=== PATIENT | male | born 1970 | race Caucasian/White ===

== ENCOUNTER 2018-02-28 06:13 | Day surgery (SDC) | payer OTHER ==
[~2018-02-28 06:13] MED LIST: CEFAZOLIN 2 GM/50 ML (PMX) 50 ML IVPB; LIDOCAINE 1% (MPF) 30 ML INJ; MINERAL OIL LIGHT 10 ML VIAL; SOD CHLORIDE 0.9% 1,000 ML IV
[2018-02-28 07:15] LABS: ADD MAN DIFF? NO
[2018-02-28 07:18] LABS: BASOPHIL # 0.1 10^3/ul (0.0-0.1); BASOPHILS % 0.6 % (0.0-2.0); EOSINOPHILS # 0.2 10^3/ul (0.0-0.5); EOSINOPHILS % 1.7 % (0.0-7.0); HEMATOCRIT 42.2 % (42.0-52.0); HEMOGLOBIN 14.7 g/dl (14.0-18.0); LYMPHOCYTES # 3.9 10^3/ul (0.8-2.9); LYMPHOCYTES % 42.6 % (15.0-51.0); MEAN CORPUSCULAR HEMOGLOBIN 30.5 pg (29.0-33.0); MEAN CORPUSCULAR HGB CONC 34.8 g/dl (32.0-37.0); MEAN CORPUSCULAR VOLUME 87.6 fl (82.0-101.0); MEAN PLATELET VOLUME 10.3 fl (7.4-10.4); MONOCYTE # 0.7 10^3/ul (0.3-0.9); MONOCYTES % 7.4 % (0.0-11.0); NEUTROPHIL # 4.3 10^3/ul (1.6-7.5); NEUTROPHILS % 47.6 % (39.0-77.0); PLATELET COUNT 247 10^3/UL (140-415); RED BLOOD COUNT 4.82 10^6/ul (4.70-6.10); RED CELL DISTRIBUTION WIDTH 11.8 % (11.5-14.5)
[2018-02-28 07:18] LABS: WHITE BLOOD COUNT 9.1 10^3/ul (4.8-10.8)
[2018-02-28 07:23] LABS: INR 0.89; PARTIAL THROMBOPLASTIN TIME 29.5 Sec (23.0-35.0); PROTIME 12.1 Sec (11.9-14.9); PT RATIO 0.9
[2018-02-28 07:25] LABS: ALANINE AMINOTRANSFERASE 80 IU/L (13-69); ALBUMIN 4.6 g/dl (3.3-4.9); ALBUMIN/GLOBULIN RATIO 1.35; ALKALINE PHOSPHATASE 67 IU/L (42-121); ANION GAP 10 (5-13); ASPARTATE AMINO TRANSFERASE 41 IU/L (15-46); BILIRUBIN,INDIRECT 0.4 mg/dl (0-1.1); BILIRUBIN,TOTAL 0.4 mg/dl (0.2-1.3); BLOOD UREA NITROGEN 17 mg/dl (7-20); CALCIUM 9.4 mg/dl (8.4-10.2); CARBON DIOXIDE 26 mmol/L (21-31); CHLORIDE 104 mmol/L (97-110); CREATININE 0.69 mg/dl (0.61-1.24); Estimated GFR > 60 mL/min (>60); GLUCOSE 111 mg/dl (70-220); POTASSIUM 3.8 mmol/L (3.5-5.1); SODIUM 140 mmol/L (135-144)
[2018-02-28] MEDS ORDERED: PROPOFOL 20 ML (07:55)
[2018-02-28] MEDS ORDERED: MEPERIDINE 100 MG INJ (07:55)
[2018-02-28] MEDS ORDERED: CEFAZOLIN 1 GM INJ (07:55)
[2018-02-28] MEDS ORDERED: LIDOCAINE 2% (SDV) 5 ML INJ (07:55)
[2018-02-28] MEDS: BUPIVACAINE 0.25% (MPF) 30 ML INJ (07:58)
[2018-02-28] MEDS: POLYMYXIN/BACITRACIN 1L IRRIG (07:59)
[2018-02-28] MEDS ORDERED: DIPHENHYDRAMINE 50 MG INJ IV (09:00)
[2018-02-28] MEDS ORDERED: MEPERIDINE 25 MG INJ IV (09:00)
[2018-02-28] MEDS ORDERED: METOCLOPRAMIDE 10 MG INJ IV (09:00)
[2018-02-28] MEDS ORDERED: OXYCODONE/ACETAMINOPHEN (5/325) TAB PO ×2 (09:00)
[2018-02-28] MEDS ORDERED: ONDANSETRON 4 MG INJ IV (09:00)
[2018-02-28] MEDS ORDERED: MIDAZOLAM 1 MG/ML 2 ML INJ IV (09:00)
[2018-02-28] MEDS ORDERED: HYDROmorphONE 1 MG/5 ML IV SYRINGE IV ×2 (09:00)
[2018-02-28] MEDS ORDERED: FENTAnyl 50 MCG/ML VIAL IV ×3 (09:00)
[2018-02-28] MEDS: HYDROmorphONE 1 MG/5 ML IV SYRINGE IV (09:19)
[2018-02-28] MEDS ORDERED: HYDROCODONE/APAP (5/325) TAB PO (09:30)
== END 2018-02-28 11:08 | disposition home or self-care (01) ==
LOC: SDS 06:13
DX: K40.90 Unilateral inguinal hernia, without obstruction or gangrene, not specified as recurrent (principal); F17.210 Nicotine dependence, cigarettes, uncomplicated
CPT/HCPCS: 49507; 80053; 85025; 85610; 85730; 88302